=== PATIENT | female | born 1975 | race African-American/Black ===

== ENCOUNTER 2021-11-30 05:44 | Emergency (ER) | payer MEDICAID, OTHER ==
[~2021-11-30] VITALS: Ht 160 cm; Wt 62.0 kg
[2021-11-30] MEDS ORDERED: TETANUS, DIPHTHERIA, PERTUSSIS VAC/PF 0.5ML (>10YR OLD) IM ONE (06:00)
[2021-11-30 07:44] LABS: EOSINOPHILS % 0.5 % (0.0-5.0); HEMATOCRIT. 38.1 % (36.0-48.0); HEMOGLOBIN. 13.3 g/dL (12.0-16.0); LYMPHOCYTES % 35.2 % (20.0-50.0); MEAN CORPUSCULAR HEMOGLOBIN 34.6 pg (28.0-32.0); MEAN CORPUSCULAR VOLUME 99.5 fL (81.0-99.0); MONOCYTES % 8.2 % (2.0-8.0); NEUTROPHILS % 55.1 % (40.0-76.0); PLATELET 93 x1000/uL (130-400); RED BLOOD CELL COUNT 3.83 mill/uL (4.2-5.4); RED CELL DISTRIBUTION WIDTH 12.8 % (11.6-14.6)
[2021-11-30 07:51] LABS: CHLORIDE 106 mEq/L (98-107)
[2021-11-30 08:07] LABS: HCG SCREEN NEGATIVE
[2021-11-30] MEDS ORDERED: CLINDAMYCIN 900 MG PREMIX 50 ML IV NR (09:22)
[2021-11-30] MEDS ORDERED: CLINDAMYCIN IN 0.9 % SOD CHLOR 50 ML IV NR (09:45)
[2021-11-30] MEDS ORDERED: LIDOCAINE HCL 1% 20ML VIAL (Pyxis) INJ INFIL ONE (09:45)
[2021-11-30] MEDS ORDERED: LIDOCAINE HCL 1% 10 MG/ML 10ML VIAL INJ NR (10:00)
[2021-11-30] MEDS ORDERED: CLIN300C12 MT (12:26)
[2021-11-30] MEDS ORDERED: HYDR-4001 MT (12:30)
[2021-11-30 14:00] VITALS: BP 119/83
== END 2021-11-30 14:32 | disposition home or self-care (01) ==
LOC: ER 05:44 → CANBEDREQ 14:30 → ER 14:32
DX: S62.643B Nondisplaced fracture of proximal phalanx of left middle finger, initial encounter for open fracture (principal); S09.8XXA Other specified injuries of head, initial encounter; S56.49 Other injury of extensor muscle, fascia and tendon of other and unspecified finger at forearm level; F12.10 Cannabis abuse, uncomplicated; Z98.890 Other specified postprocedural states; Z88.0 Allergy status to penicillin; Y00.XXXA Assault by blunt object, initial encounter; Y93.89 Activity, other specified; Y92.488 Other paved roadways as the place of occurrence of the external cause
CPT/HCPCS: 12001; 36415; 70450; 72125; 73130; 80053; 84703; 85025; 90471; 90715; 96365; 99285; J3490; Z7610

== ENCOUNTER 2021-12-05 00:05 | Emergency (ER) | payer OTHER ==
[~2021-12-05] VITALS: Ht 162.6 cm; Wt 85.0 kg
[~2021-12-05 00:05] MED LIST: CLIN300C12 MT; HYDR-4001 MT
[2021-12-05 00:22] VITALS: BP 135/80
[2021-12-05] MEDS ORDERED: CLINDAMYCIN HCL 150MG CAPSULE PO ONE (00:45)
[2021-12-05] MEDS ORDERED: ACETAMINOPHEN 325MG TABLET PO ONE (00:45)
[2021-12-05] MEDS ORDERED: CLIN300C12 MT (01:35)
== END 2021-12-05 01:48 | disposition home or self-care (01) ==
LOC: ER 00:05
DX: S61.411D Laceration without foreign body of right hand, subsequent encounter (principal); Z88.0 Allergy status to penicillin; X58.XXXD Exposure to other specified factors, subsequent encounter
CPT/HCPCS: 99283

== ENCOUNTER 2021-12-17 10:15 | Emergency (ER) | payer OTHER ==
[~2021-12-17] VITALS: Ht 160 cm; Wt 77.0 kg
[2021-12-17] MEDS ORDERED: ACETAMINOPHEN 325MG TABLET PO ONE (10:30)
[2021-12-17] MEDS ORDERED: ACETAMINOPHEN 325MG TABLET PO NR (13:50)
[2021-12-17] MEDS ORDERED: SULF1TAB47 MT (14:28)
[2021-12-17] MEDS ORDERED: CEPH500T MT (14:28)
[2021-12-17 15:07] VITALS: BP 136/83
== END 2021-12-17 15:09 | disposition home or self-care (01) ==
LOC: ER 10:15
DX: S62.613A Displaced fracture of proximal phalanx of left middle finger, initial encounter for closed fracture (principal); X58.XXXA Exposure to other specified factors, initial encounter; Y93.89 Activity, other specified; Y92.89 Other specified places as the place of occurrence of the external cause; Y99.8 Other external cause status
CPT/HCPCS: 29130; 73130; 99283

== ENCOUNTER 2022-04-24 23:28 | Emergency (ER) | payer OTHER ==
[~2022-04-24] VITALS: Ht 162.6 cm; Wt 73.0 kg
[~2022-04-24 23:28] MED LIST changes: +CEPH500T MT; +CLIN-194 MT; -CLIN300C12 MT; +SULF1TAB47 MT
[2022-04-24 23:33] VITALS: BP 128/84
[2022-04-24] MEDS ORDERED: IBUPROFEN 600MG TABLET PO ONE (23:45)
[2022-04-24] MEDS ORDERED: TETANUS, DIPHTHERIA, PERTUSSIS VAC/PF 0.5ML (>10YR OLD) IM ONE (23:45)
[2022-04-24] MEDS ORDERED: BACITRACIN ZINC OINT UDPKT TOP ONE (23:45)
[2022-04-25] MEDS ORDERED: BO1 TP (01:29)
== END 2022-04-25 01:33 | disposition home or self-care (01) ==
LOC: ER 23:28
DX: S80.812A Abrasion, left lower leg, initial encounter (principal); S80.811A Abrasion, right lower leg, initial encounter; X58.XXXA Exposure to other specified factors, initial encounter; Y93.89 Activity, other specified; Y92.89 Other specified places as the place of occurrence of the external cause; Y99.8 Other external cause status; Z98.890 Other specified postprocedural states; Z79.899 Other long term (current) drug therapy; Z88.0 Allergy status to penicillin
CPT/HCPCS: 90471; 90715; 99283